=== PATIENT | male | born 1940 | race Caucasian/White ===

== ENCOUNTER → 2018-06-19 | Outpatient (CLI) | payer MEDICARE ==
[~2018-06-19] MED LIST: ACYCLOVIR PO; Z SULAR PO; Z.0.BYSTOLIC10 MG PO; Z.0.HYDROCHLOROTHIA2 PO; Z.0.PRILOSEC OTC20 M PO
--- NOTE | 2018-06-19 10:58 | Diagnostic Imaging Report ---
PROCEDURE: Frontal and lateral views of the chest. COMPARISON: Chest radiograph 07/30/2012. INDICATIONS: CHEST PAIN/TIGHTNESS FINDINGS: Lines/tubes: None. Lungs: The lungs are well inflated. There is no evidence of pneumonia or pulmonary edema. Calcified nodules are noted in the right upper lobe, as before, likely representing granulomas. Pleura: There is no pleural effusion or pneumothorax. Biapical pleural parenchymal thickening. Heart and mediastinum: The cardiomediastinal silhouette is unremarkable. Bones: No acute bony abnormality. IMPRESSION: No acute radiographic abnormality. Findings of chronic granulomatous disease in the right upper lobe and lung apices. Dictated by: FREDRICK GONZALEZ M.D. on 06/19/2018 at 11:05 Electronically approved by: FREDRICK GONZALEZ M.D. on 06/19/2018 at 11:05
== END ==
LOC: RAD 10:11
PROVIDERS: ATTEND Internal Medicine
DX: R07.9 Chest pain, unspecified (principal)
CPT/HCPCS: 71046

== ENCOUNTER → 2019-04-23 | Outpatient (CLI) | payer MEDICARE | LOC: RAD 09:31 | PROVIDERS: ATTEND Internal Medicine | DX: I82.493 Acute embolism and thrombosis of other specified deep vein of lower extremity, bilateral (principal) | CPT/HCPCS: 93970 ==

== ENCOUNTER → 2022-05-20 | Outpatient (CLI) | payer MEDICARE | LOC: CT 13:13 | PROVIDERS: ATTEND Internal Medicine | DX: R06.00 Dyspnea, unspecified (principal) | CPT/HCPCS: 71250 ==

== ENCOUNTER 2022-10-09 18:10 | Observation (INO) | payer MEDICARE ==
[~2022-10-09] VITALS: Ht 180.3 cm; Wt 90.7 kg
[2022-10-09] MEDS ORDERED: METOPROLOL TARTRATE INJ 1 MG/ML VIAL IV ONE (18:15)
[2022-10-09] MEDS ORDERED: DIGOXIN INJ 0.25 MG/ML 2 ML AMP IV ONE (18:15)
[2022-10-09] MEDS ORDERED: ASPIRIN 81 MG CHEW TAB PO ONE (18:15)
[2022-10-09] MEDS ORDERED: DILTIAZEM HCL 5 MG/ML 5 ML VIAL IV ONE (18:15)
[2022-10-09 18:31] LABS: BASOPHILS % 0.2 % (0.0-1.0); EOSINOPHILS # (AUTO) 0.1 (0.0-0.4); EOSINOPHILS % 0.7 % (0.0-6.0); HEMATOCRIT 43.7 % (38.2-49.6); HEMOGLOBIN 14.4 g/dL (14.0-18.0); LYMPHOCYTES # (AUTO) 1.6 (1.0-3.2); LYMPHOCYTES % 18.4 % (18.0-39.1); MEAN CORPUSCULAR HEMOGLOBIN 32.3 pg (28-32); MONOCYTES # (AUTO) 1.2 (0.2-0.8); MONOCYTES % 13.2 % (4.4-11.3); NEUTROPHILS % 67.2 % (38.7-80.0); PLATELET COUNT 236 x10e3/uL (140-360); RED BLOOD COUNT 4.46 x10e6/uL (4.3-5.7)
[2022-10-09 18:56] LABS: ALBUMIN/GLOBULIN RATIO 0.8 (0.8-2.0); CREATININE, SERUM 1.58 mg/dL (0.72-1.25)
[2022-10-09 19:05] LABS: CREATINE KINASE MB 1.1 ng/mL (0-5.0)
[2022-10-09] MEDS ORDERED: POTASSIUM CHLORIDE 20 MEQ TAB CR PO ONE (19:07)
[2022-10-09] MEDS ORDERED: Morphine 4mg INJECTION 4 MG/ML INJ IV PRN (19:15)
[2022-10-09] MEDS ORDERED: ONDANSETRON HCL INJ 2MG/ML 2ML 2 MG/ML VIAL IV PRN (19:15)
[2022-10-09] MEDS: POTASSIUM CHLORIDE 20MEQ/100ML 100 ML IV SCH ×2 (20:07→22:39)
[2022-10-09] MEDS ORDERED: SODIUM CHLORIDE 0.9% 250ML 250 ML ONE (20:30)
[2022-10-09] MEDS ORDERED: FLOMAX0.4 MG PO (21:35)
[2022-10-09] MEDS ORDERED: ATORVASTATIN CA20 MG PO (21:35)
[2022-10-09] MEDS ORDERED: GLIMEPIRIDE4 MG PO (21:35)
[2022-10-09] MEDS ORDERED: ASPIRIN81 MG PO (21:35)
[2022-10-09 21:51] VITALS: BP 128/84
[2022-10-09 21:52] VITALS: BP 128/84
[2022-10-09 22:14] VITALS: BP 128/84
[2022-10-10 01:50] VITALS: BP 133/71
[2022-10-10 05:54] LABS: BASOPHILS % 0.4 % (0.0-1.0); EOSINOPHILS # (AUTO) 0.1 (0.0-0.4); EOSINOPHILS % 1.4 % (0.0-6.0); HEMOGLOBIN 13.6 g/dL (14.0-18.0); LYMPHOCYTES # (AUTO) 1.5 (1.0-3.2); LYMPHOCYTES % 19.1 % (18.0-39.1); MEAN CORPUSCULAR HEMOGLOBIN 32.3 pg (28-32); MEAN CORPUSCULAR HGB CONC 32.4 g/dL (31-35); MEAN CORPUSCULAR VOLUME 99.8 fL (81-99); MONOCYTES % 12.8 % (4.4-11.3); NEUTROPHILS # (AUTO) 5.2 (2.1-6.9); NEUTROPHILS % 65.9 % (38.7-80.0); PLATELET COUNT 208 x10e3/uL (140-360); RED BLOOD COUNT 4.21 x10e6/uL (4.3-5.7); RED CELL DISTRIBUTION WIDTH 13.2 % (11.7-14.4)
[2022-10-10 05:57] VITALS: BP 133/65
[2022-10-10 06:16] LABS: ALBUMIN 2.7 g/dL (3.5-5.0); ALBUMIN/GLOBULIN RATIO 0.8 (0.8-2.0); ANION GAP 17.5 mmol/L (8-16); CALCIUM 8.6 mg/dL (8.4-10.2); CREATININE, SERUM 1.44 mg/dL (0.72-1.25); POTASSIUM 3.5 mmol/L (3.5-5.1)
[2022-10-10 07:41] LABS: CREATINE KINASE MB 0.8 ng/mL (0-5.0)
[2022-10-10] MEDS ORDERED: GLIMEPIRIDE 2 MG TAB PO SCH (08:00)
[2022-10-10 08:47] VITALS: BP 133/65
[2022-10-10] MEDS ORDERED: ASPIRIN 81 MG CHEW TAB PO SCH (09:00)
[2022-10-10] MEDS ORDERED: HYDROCHLOROTHIAZIDE 25 MG TAB PO SCH (09:00)
[2022-10-10] MEDS ORDERED: NISOLDIPINE 25.5 MG PO SCH (09:00)
[2022-10-10 09:05] VITALS: BP 117/69
[2022-10-10 12:03] VITALS: BP 127/90
[2022-10-10 12:17] VITALS: BP 127/90
[2022-10-10] MEDS ORDERED: TAMSULOSIN HCL 0.4 MG CAP PO SCH (17:00)
[2022-10-10] MEDS ORDERED: ATORVASTATIN 20 MG TAB PO SCH (21:00)
[2022-10-10] MEDS ORDERED: NEBIVOLOL 10 MG TAB PO SCH (21:00)
== END 2022-10-10 13:35 | disposition home or self-care (01) ==
LOC: ER 18:15 → ERHOLD 19:18 → INTOOBSV 19:18 → MED/SURG2 20:35
PROVIDERS: ADMIT Internal Medicine; ATTEND Internal Medicine
DX: I48.91 Unspecified atrial fibrillation (principal); F43.29 Adjustment disorder with other symptoms; E87.6 Hypokalemia; F41.9 Anxiety disorder, unspecified; E11.22 Type 2 diabetes mellitus with diabetic chronic kidney disease; I12.9 Hypertensive chronic kidney disease with stage 1 through stage 4 chronic kidney disease, or unspecified chronic kidney disease; N18.30 Chronic kidney disease, stage 3 unspecified; E11.69 Type 2 diabetes mellitus with other specified complication; E78.5 Hyperlipidemia, unspecified; Z20.822 Contact with and (suspected) exposure to COVID-19
CPT/HCPCS: 36415 ×2; 71045; 80053 ×2; 80320; 82550 ×2; 82553 ×2; 83690; 83880; 84484 ×2; 85025 ×2; 93005; 99284; G0378 ×2; J1160; J3480; J7050; U0002